=== PATIENT | female | born 1940 | race Caucasian/White ===

== ENCOUNTER 2018-09-29 00:29 | Outpatient (CLI) | payer MEDICARE, SELFPAY ==
--- NOTE | 2018-09-29 09:34 | DI.MAMMO_ITS ---
SYMPTOM/DIAGNOSIS: SCREENING, Z12.39 MAMMOGRAMS: Mammograms were interpreted according to the usual protocol including computer analysis with CAD system, tomosynthesis and C view imaging. Comparison is with the prior examinations. No suspicious masses or microcalcifications are seen. The asymmetric breast tissue in the upper outer quadrant of the right breast appears stable. IMPRESSION: No evidence for malignancy. Yearly mammography is recommended. Category 1. Breast density B. MQSA ASSESSMENT OF FINDINGS: Negative. Category 1. Patient will receive a letter notifying them of these results. BI-RADS category B. There are scattered areas of fibroglandular density.
== END 2018-09-29 00:49 ==
PROVIDERS: PCP Family Medicine; Visit Provider Family Medicine
DX: Z12.31 Encounter for screening mammogram for malignant neoplasm of breast (principal)
CPT/HCPCS: 77063; 77067

== ENCOUNTER 2019-09-22 11:20 | Outpatient (REF) | payer MEDICARE, SELFPAY ==
[2019-09-22 18:50] LABS: HCT 42.2 % (36.0-46.0); HGB 14.1 g/dL (12.0-15.5); Mean Corp. HGB Concentration 33.4 g/dL (32.0-36.0); Mean Corpuscular Hemoglobin 31.4 pg (27.0-33.0); Mean Platelet Volume 10.6 fL (8.0-11.0); Platelet Count 205 x1000/uL (130-400); RBC 4.49 m/cumm (4.00-5.20); RBC Distribution Width 13.6 % (11.7-14.6); White Blood Cell Count 6.44 k/cumm (4.4-10.8)
[2019-09-22 18:52] LABS: Anion Gap 10.6 mmol/L (3-11); BUN 18 mg/dL (7-18); CO2 23.4 mmol/L (21.0-32.0); CREATININE 0.95 mg/dL (0.55-1.02); Calcium 9.3 mg/dL (8.5-10.1); Chloride 107 mmol/L (98-107); Glucose 100 mg/dL (74-106); Potassium 4.4 mmol/L (3.5-5.1); Sodium 141 mmol/L (136-145)
== END 2019-09-22 11:40 ==
LOC: NCHCN 11:20
PROVIDERS: PCP Family Medicine; Visit Provider Family Medicine
DX: N18.3 Chronic kidney disease, stage 3 (moderate) (principal)
CPT/HCPCS: 80048; 85027

== ENCOUNTER 2020-09-30 18:53 | Outpatient (REF) | payer MEDICARE, SELFPAY ==
[2020-09-30 19:44] LABS: Anion Gap 10.2 mmol/L (3-11); BUN 24 mg/dL (7-18); CO2 24.8 mmol/L (21.0-32.0); CREATININE 0.9 mg/dL (0.55-1.02); Calcium 9.5 mg/dL (8.5-10.1); Chloride 107 mmol/L (98-107); Glucose 95 mg/dL (74-106); Potassium 4.2 mmol/L (3.5-5.1); Sodium 142 mmol/L (136-145)
== END 2020-09-30 18:54 | disposition home or self-care (01) ==
LOC: NCHCN 18:53
PROVIDERS: PCP Family Medicine; Visit Provider Family Medicine
DX: N18.30 Chronic kidney disease, stage 3 unspecified (principal)
CPT/HCPCS: 80048

== ENCOUNTER 2020-11-07 19:50 | Outpatient (REF) | payer MEDICARE, SELFPAY ==
[2020-11-07 19:54] LABS: Abs Immature Grans 0.01 10^3/uL (0.0-0.06); Absolute Basophil Count 0.07 10^3/uL (0.0-0.2); Absolute Eosinophil Count 0.24 10^3/uL (0.0-0.7); Absolute Monocyte Count 0.52 10^3/uL (0.1-0.8); Absolute Neutrophil Count 3.46 10^3/uL (1.2-6.7); Basophils % 1.2; Eosinophils % 4.1; HCT 42.3 % (36.0-46.0); HGB 14.2 g/dL (11.2-15.7); Immature Grans % 0.2; Lymphocytes % 25.9; MCH 31.7 pg (27.0-33.0); MCHC 33.6 % (32.0-36.0); MCV 94.4 fL (80-95); MPV 10.4 fL (8.0-11.0); Neutrophils % 59.6; Nucleated RBC 0 %; Platelet Count 179 10^3/uL (130-400); RBC 4.48 10^6/uL (3.93-5.22); RDW-SD 44.7 fL
[2020-11-07 20:04] LABS: ALT 26 U/L (14-59); AST 23 U/L (15-37); Albumin 3.9 g/dL (3.4-5.0); Alkaline Phosphatase 92 U/L (46-116); Anion Gap 9.5 mmol/L (3-11); BUN 20 mg/dL (7-18); Bilirubin, Total 0.5 mg/dL (0.2-1.0); CO2 25.5 mmol/L (21.0-32.0); CREATININE 0.9 mg/dL (0.55-1.02); Chloride 110 mmol/L (98-107); Glucose 86 mg/dL (74-106); Potassium 4.1 mmol/L (3.5-5.1); Sodium 145 mmol/L (136-145); Total Protein 7.1 g/dL (6.4-8.2)
[2020-11-09 15:02] LABS: COVID-19 RT-PCR UVMMC Result Negative (Negative)
== END 2020-11-07 19:51 | disposition home or self-care (01) ==
LOC: NCHCN 19:50
PROVIDERS: PCP Family Medicine; Visit Provider Physician Assistant Medical
DX: R53.1 Weakness (principal); N39.0 Urinary tract infection, site not specified; Z20.822 Contact with and (suspected) exposure to COVID-19
CPT/HCPCS: 80053; U0003; 85025; 87086

== ENCOUNTER 2020-12-12 20:16 | Outpatient (REF) | payer MEDICARE, SELFPAY ==
[2020-12-12 20:58] LABS: Abs Immature Grans 0.01 10^3/uL (0.0-0.06); Absolute Basophil Count 0.03 10^3/uL (0.0-0.2); Absolute Eosinophil Count 0.16 10^3/uL (0.0-0.7); Absolute Lymphocyte Count 1.56 10^3/uL (1.2-3.4); Absolute Monocyte Count 0.71 10^3/uL (0.1-0.8); Absolute Neutrophil Count 2.87 10^3/uL (1.2-6.7); Basophils % 0.6; HCT 37.2 % (36.0-46.0); HGB 12.7 g/dL (11.2-15.7); Immature Grans % 0.2; Lymphocytes % 29.2; MCH 31.8 pg (27.0-33.0); MCHC 34.1 % (32.0-36.0); Monocytes % 13.3; Neutrophils % 53.7; Nucleated RBC 0 %; Platelet Count 196 10^3/uL (130-400); RDW 12.7 % (11.7-14.6); RDW-SD 43.6 fL; WBC 5.34 10^3/uL (4.4-10.8)
[2020-12-12 21:05] LABS: Anion Gap 9.6 mmol/L (3-11); BUN 13 mg/dL (7-18); CO2 26.4 mmol/L (21.0-32.0); CREATININE 0.9 mg/dL (0.55-1.02); Calcium 8.5 mg/dL (8.5-10.1); Chloride 107 mmol/L (98-107); Glucose 125 mg/dL (74-106); Potassium 3.6 mmol/L (3.5-5.1); Sodium 143 mmol/L (136-145)
== END 2020-12-12 20:17 | disposition home or self-care (01) ==
LOC: NCHCN 20:16
PROVIDERS: PCP Family Medicine; Visit Provider Physician Assistant Medical
DX: R19.7 Diarrhea, unspecified (principal)
CPT/HCPCS: 80048; 85025

== ENCOUNTER 2020-12-13 12:11 | Outpatient (REF) | payer MEDICARE, SELFPAY ==
[2020-12-13 15:33] LABS: C Diff PCR Positive (Negative)
[2020-12-15 19:29] LABS: Campylobacter PCR Negative (Negative); Salmonella PCR Negative (Negative); Shiga Toxin PCR Negative (Negative); Shigella/Enteroinvasive Ecoli Negative (Negative)
== END 2020-12-13 12:12 | disposition home or self-care (01) ==
LOC: NCHCN 12:11
PROVIDERS: PCP Family Medicine; Visit Provider Physician Assistant Medical
DX: R19.7 Diarrhea, unspecified (principal)
CPT/HCPCS: 87329; 87493; 87505; 87177

== ENCOUNTER 2021-06-23 16:27 | Outpatient (REF) | payer MEDICARE, SELFPAY ==
[2021-06-23 16:50] LABS: C Diff PCR Positive (Negative)
== END 2021-06-23 16:28 | disposition home or self-care (01) ==
LOC: NCHCN 16:27
PROVIDERS: PCP Family Medicine; Visit Provider Family Medicine
DX: R19.7 Diarrhea, unspecified (principal)
CPT/HCPCS: 87493

== ENCOUNTER 2021-06-24 16:15 | Outpatient (REF) | payer MEDICARE, SELFPAY ==
[2021-06-24 16:27] LABS: Abs Immature Grans 0.01 10^3/uL (0.0-0.06); Absolute Basophil Count 0.08 10^3/uL (0.0-0.2); Absolute Lymphocyte Count 1.74 10^3/uL (1.2-3.4); Absolute Monocyte Count 0.61 10^3/uL (0.1-0.8); Absolute Neutrophil Count 3.56 10^3/uL (1.2-6.7); Basophils % 1.2; Eosinophils % 7.7; HCT 43.5 % (36.0-46.0); Immature Grans % 0.2; Lymphocytes % 26.8; MCHC 32.2 % (32.0-36.0); MCV 96.5 fL (80-95); MPV 10.7 fL (8.0-11.0); Monocytes % 9.4; Neutrophils % 54.7; Nucleated RBC 0 %; Platelet Count 205 10^3/uL (130-400); RBC 4.51 10^6/uL (3.93-5.22); RDW 13.1 % (11.7-14.6); RDW-SD 46.7 fL
[2021-06-24 16:42] LABS: Anion Gap 10.1 mmol/L (3-11); BUN 18 mg/dL (7-18); CO2 25.9 mmol/L (21.0-32.0); Calcium 9.2 mg/dL (8.5-10.1); Chloride 109 mmol/L (98-107); Estimated GFR 53.21 (mL/min/1.73m2); Glucose 85 mg/dL (74-106); Potassium 4.1 mmol/L (3.5-5.1); Sodium 145 mmol/L (136-145)
== END 2021-06-24 16:16 | disposition home or self-care (01) ==
LOC: NCHCN 16:15
PROVIDERS: PCP Family Medicine; Visit Provider Family Medicine
DX: A04.71 Enterocolitis due to Clostridium difficile, recurrent (principal); N18.30 Chronic kidney disease, stage 3 unspecified
CPT/HCPCS: 80048; 85025

== ENCOUNTER 2021-07-15 14:12 | Outpatient (REF) | payer MEDICARE, SELFPAY ==
[2021-07-15 14:51] LABS: C Diff PCR Negative (Negative)
== END 2021-07-15 14:13 | disposition home or self-care (01) ==
LOC: NCHCN 14:12
PROVIDERS: PCP Family Medicine; Visit Provider Family Medicine
DX: R19.7 Diarrhea, unspecified (principal)
CPT/HCPCS: 87493

== ENCOUNTER 2021-08-27 15:51 | Outpatient (REF) | payer MEDICARE, SELFPAY ==
--- NOTE | 2021-08-27 15:00 | SKI_PTH ---
PATIENT: Maria Figueroa LOC: [facility] U#:[id number] AGE/SX: 81/F ROOM: RE08/27/[address]: Iron Ruiz : 1940 BED: DIS: 08/27/2021 SPEC #: [id number] RECD: 08/27/21 18:13 STATUS: JEISON REQ #: [id number] GAMAL: 08/27/21 15:[address]: Iron Ruiz DEPT: Surgical Specimen RECD BY: Sheree Gómez ENTERED: 08/27/21 18:14 SP TYPE: COLTEN QUINONES DR: Bonnie Roach Tissues: 1 - SKIN BIOPSY(SHAVE/PUNCH) Procedures: SKIN LEVEL 4 Comments: [id number]
== END 2021-08-27 15:52 | disposition home or self-care (01) ==
LOC: LBN 15:51
PROVIDERS: PCP Family Medicine; Visit Provider Family Medicine
DX: L30.8 Other specified dermatitis (principal)
CPT/HCPCS: 88305

== ENCOUNTER 2021-10-27 20:11 | Outpatient (REF) | payer MEDICARE, SELFPAY ==
[2021-10-27 12:01] LABS: C Diff PCR Negative (Negative)
== END 2021-10-27 20:12 | disposition home or self-care (01) ==
LOC: NCHCN 20:11
PROVIDERS: PCP Family Medicine; Visit Provider Family Medicine
DX: R19.7 Diarrhea, unspecified (principal)
CPT/HCPCS: 87493

== ENCOUNTER 2022-10-28 15:53 | Outpatient (REF) | payer MEDICARE, SELFPAY ==
[2022-10-28 19:09] LABS: Anion Gap 10.1 mmol/L (3-11); BUN 21 mg/dL (7-18); CO2 26.9 mmol/L (21.0-32.0); CREATININE 0.9 mg/dL (0.55-1.02); Calcium 9.6 mg/dL (8.5-10.1); Chloride 105 mmol/L (98-107); Estimated GFR 63.43 (mL/min/1.73m2); Glucose 91 mg/dL (74-106); Potassium 4.3 mmol/L (3.5-5.1); Sodium 142 mmol/L (136-145); TSH (W/Ref FT4) 3.18 uIU/mL (0.36-3.74)
[2022-10-28 19:22] LABS: Glucose Negative (Negative); Nitrite Negative (Negative); Urobilinogen 0.2 mg/dL (Up to 0.2)
[2022-10-28 19:26] LABS: Bacteria Negative HPF (Negative); C & S Indicated? No; Casts Negative LPF (Negative); Crystals Negative HPF (Negative); Epithelial Cells Few HPF (Negative)
[2022-10-28 19:42] LABS: Clarity Clear (Clear)
[2022-10-28 19:43] LABS: Leukocyte Esterase Trace (Negative); pH 6.5 (5-8)
[2022-10-28 19:44] LABS: Ketones Negative (Negative)
[2022-10-28 19:45] LABS: Bilirubin Negative (Negative); Blood Negative (Negative)
[2022-10-28 19:47] LABS: Mucus Negative (Negative); RBC 0-2 HPF (0-2)
[2022-10-28 19:50] LABS: Vitamin B12 > 2000 pg/mL (193-986)
== END 2022-10-28 15:54 | disposition home or self-care (01) ==
LOC: NCHCN 15:53
PROVIDERS: PCP Family Medicine; Visit Provider Family Medicine
DX: N18.30 Chronic kidney disease, stage 3 unspecified (principal); E53.8 Deficiency of other specified B group vitamins; R03.0 Elevated blood-pressure reading, without diagnosis of hypertension; Z79.899 Other long term (current) drug therapy
CPT/HCPCS: 80048; 81003; 81015; 82607; 84443

== ENCOUNTER 2022-11-04 16:26 | Outpatient (REF) | payer MEDICARE, SELFPAY ==
[2022-11-04 13:40] LABS: Bilirubin Negative (Negative); Blood Negative (Negative); Clarity Sl Cloudy (Clear); Glucose Negative (Negative); Ketones Negative (Negative); Leukocyte Esterase Moderate (Negative); Nitrite Negative (Negative); Urobilinogen 0.2 mg/dL (Up to 0.2)
[2022-11-04 14:25] LABS: Bacteria Few HPF (Negative); C & S Indicated? No/Sq. Contamination; Casts Negative LPF (Negative); Crystals Negative HPF (Negative); Epithelial Cells Moderate HPF (Negative); Mucus Negative (Negative); RBC Negative HPF (0-2)
== END 2022-11-04 16:27 | disposition home or self-care (01) ==
LOC: NCHCN 16:26
PROVIDERS: PCP Family Medicine; Visit Provider Family Medicine
DX: R82.998 Other abnormal findings in urine (principal); R03.0 Elevated blood-pressure reading, without diagnosis of hypertension
CPT/HCPCS: 81003; 81015

== ENCOUNTER 2023-08-25 15:42 | Outpatient (REF) | payer MEDICARE, SELFPAY ==
[2023-08-25 17:43] LABS: COVID-19 PCR Negative (Negative); Influenza A PCR Negative (Negative); Influenza B PCR Negative (Negative); RSV PCR Negative (Negative); Source NASOPHARYNX
== END 2023-08-25 15:43 | disposition home or self-care (01) ==
LOC: LBN 15:42
PROVIDERS: PCP Family Medicine; Visit Provider Physician Assistant Medical
DX: Z20.822 Contact with and (suspected) exposure to COVID-19 (principal)
CPT/HCPCS: 87637

== ENCOUNTER 2023-09-17 09:58 | Emergency (ER) | payer MEDICARE, SELFPAY ==
[2023-09-17] VITALS (29 sets, daily range): BP systolic 139–161; BP diastolic 63–101; PULSE 60–80; RESP 11–23; TEMP 36.4; O2SAT 79–98
--- NOTE | 2023-09-17 10:00 | RT.EKG_ITS ---
APPROVED REPORT Exam: Resting ECG Reason for Exam: Weak Patient Location: E HR:72 bpm ECG Measurements Heart Rate 72 AXIS DC 150 P 36 QRSd 93 QRS 29 QT 398 T 60 QTc 437 Conclusion Sinus rhythm...normal P axis, V-rate 60- 99 Narrow complex normal sinus rhythm at a rate of 72. Normal axis. Intervals within normal limits. S T segment flattening V2 and V3. No T wave inversions. No acute injury pattern. No prior for compar madhav.
--- NOTE | 2023-09-17 10:01 | ED.GENADUL_ITS ---
Discharge Plan Disposition Patient Disposition: Home Discharge Details Clinical Impression: Chest pain, unspecified Primary Care Provider: Iron Ruiz ED Provider: Iron Lopez Home Meds and New Rx's Prescriptions: Continued cholecalciferol (vitamin D3) 1,000 UNIT capsule 1,000 unit PO BID acetaminophen [Tylenol] 325 MG tablet 325 mg PO Q3H PRN cyanocobalamin (vitamin B-12) [Vitamin B-12] 1,000 MCG tablet 1,000 mcg PO DAILY pantoprazole 40 MG tablet,delayed release (DR/EC) 1 tab PO PRN PRN Hold Instructions: Prescription Finished ondansetron 4 MG tablet,disintegrating 4 mg PO Q8H PRN PRNQty: 30 0RF Hold Instructions: Prescription Finished Discharge Instructions Instructions: Chest Pain (ED) Additional Instructions: You are seen in the emergency department for your chest pain. Your blood work showed no sign of any heart attack. Your chest x-ray shows that you have a hiatal hernia. As we discussed if you cannot eat or drink develop nausea or vomiting or if you have any other concerns please return to the emergency department. Please also return if you pass out or if you are chest pain worsens. Discharge Data Discharge Date/Time-TO BE ENTERED AT DEPARTURE: 09/17/23 14:14 HPI General Date/Time Provider Initiated Documentation: 09/17/23 10:01 . HPI Narrative: MDM This is an overall very well-appearing afebrile and not tachycardic 83-year-old female with chest pain concerning for the possibility of ACS for which she will obtain 2 troponins. No pain out of proportion to suggest necrotizing soft tissue infection. No cough nor shortness of breath so my suspicion for pneumonia is low however will obtain a chest x-ray. No vascular risk factors and no tearing quality to suggest aortic dissection. No history of dialysis and no tachycardia nor hypotension so my suspicion is low for tamponade. No trauma to the chest and equal breath sounds so doubt pneumothorax. No vomiting so doubt esophageal rupture. No rash to chest to suggest zoster. I considered PE and patient is low risk so we will obtain a D-dimer. I also considered CVA however the patient is neurologically intact with no objective weakness I do not feel that the patient requires an MRI nor would she be a tPA candidate. No tonic-clonic activity to suggest seizure so I do not feel the patient requires an EEG. No dysuria no frequency so doubt UTI. Soft nontender abdomen and no recent abdominal complaints so my suspicion for intra-abdominal infection is exceedingly low. Will reassess following 2 sets of troponins. Patient does have a history of hiatal hernia however given her upper chest pain my suspicion for hiatal hernia causing symptoms is low. No shortness of breath to suggest acute heart failure. Similarly no significant lower extremity edema. 10:42 AM CBC lacks anemia thrombocytopenia and leukocytosis. 11:21 AM Negative D-dimer based on years criteria. Negative initial troponin. Basic metabolic panel showing no AMPARO. Mild hyperglycemia but no anion gap. Normal bicarbonate??not consistent with DKA. 6:40PM Late charting due to patient care. I met with patient and her son. She felt improved. She tolerated PO. Repeat trop negative. I advised that I did not have a clear explanation for symptoms but I that I felt that pt was appropriate for an empiric trial of expectant outpt management. I advised ED return for any syncope, chest pain that radiated to arm, and confusion or any other concerns. Otherwise I advised PCP fu next week. HEART SCORE Chest pain Diagnostic Protocol: [-History/Physical/Gestalt: Slightly Suspicious (0)] [- EKG: Nonspecific repolarization (+1)] [- AGE: 65 and older (+2)] [-RISK FACTORS: No known risk factors (0)] [-TROPONIN: <= normal limit (0)] - TOTAL SCORE: 3 - Risk Factors: DM, current or recent smoker, HTN, HLD, family hx of CAD, obesity - INTERPRETATION: With a total score of 3 or less, risk of major cardiac event within six weeks 1.7%, likely lower with two negative troponins. [I explained to the patient that the risk of subsequent major cardiac event within 1 month is not 0, however risk predicted to be less than 2%. Patient verbalized understanding, accepts this risk and shared and the decision for discharge with PCP follow-up for further evaluation and management. They understand to return to the ED immediately with any worsening symptoms, new symptoms or other concerns.] Chronic conditions affecting the care of the patient: Hiatal hernia History obtained from an outside historian: Patient's son External record [place] [facility] [place] Diagnostic interpretations performed by me: Per my independent interpretation chest x-ray shows: Large left hiatal hernia. No acute cardiopulmonary process. Per my independent interpretation EKG shows: Narrow complex normal sinus rhythm at a rate of 72. Normal axis. Intervals within normal limits. ST segment flattening V2 and V3. No T wave inversions. No acute injury pattern. No prior for comparison. ]Medications: none Social determinants of health affecting disposition: N/A Management discussed with: N/A Treatment/interventions considered: N/A Response to therapies provided: no recurrent symtpoms in the ED HPI This is an 83-year-old female with a history of hiatal hernia arriving to the emergency department via private vehicle with her son in the setting of left- sided upper chest pain that began approximately 30 minutes ago. Patient was riding with her son to a medical appointment. She noticed discomfort in her chest that was associated with discomfort in her left upper arm. She felt weak. Symptoms began at approximately 9:45 AM. She had no prior history of similar symptoms. She has had no recent cough nor fevers. No nausea vomiting nor headaches. Patient denies history of hypertension hyperlipidemia and diabetes. She denies routine tobacco, ethanol, and illicits. She denies any abdominal p ain. She felt as if she was going to pass out. Exam General: Well-appearing in no acute distress speaking in complete sentences. Head: Normocephalic, atraumatic. Eye:[Pupils equal, round reactive to light.] Extraocular eye movements intact. No conjunctival injection. No scleral icterus. Ear, nose, mouth, throat: Grossly normal inspection. Normal voice, handling secretions normally. Neck: Trachea midline. Cardiovascular: Well-perfused distal extremities. Regular rate and rhythm Respiratory: Nonlabored respiration. Clear lungs bilaterally Gastrointestinal: Nondistended abdomen. Soft nontender Musculoskeletal: No significant lower extremity edema. Moving all 4 extremities spontaneously. Skin: Normal for age and race, grossly normal temperature and turgor. No acute rash. Neurologic: Alert and appropriate, no apparent acute deficits. GCS 15. Cranial nerves II through XII intact grossly. No pronator drift. 5 out of 5 bilateral upper and lower extremity strength. No dysmetria. No dysdiadochokinesia. No pronator drift. Psychiatric: Mood and manner are appropriate. Grooming and personal hygiene are appropriate. Related Data Home Medications Medication Instructions Recorded Confirmed acetaminophen 325 mg tablet 325 mg PO Q3H PRN 12/20/13 09/17/23 (Tylenol) cholecalciferol (vitamin D3) 25 1,000 unit PO BID 12/20/13 09/17/23 mcg (1,000 unit) capsule cyanocobalamin (vitamin B-12) 1,000 mcg PO DAILY 07/17/14 09/17/23 1,000 mcg tablet (Vitamin B-12) pantoprazole 40 mg tablet,delayed 1 tab PO PRN PRN 08/06/14 09/17/23 release ondansetron 4 mg disintegrating 4 mg PO Q8H PRN PRN ##30 04/10/17 09/17/23 tablet Previous Rx's Medication Instructions Recorded ondansetron 4 mg disintegrating 4 mg PO Q8H PRN PRN ##30 04/10/17 tablet Allergies Allergy/AdvReac Type Severity Reaction Status Date / Time oxycodone HCl [From Percocet] AdvReac Intermediate Nausea Unverified 04/10/17 09:41 Medical Decision Making Quality:SDOH Health Related Social Needs: No Data to Display PFSH All Active Problems (Updated 09/17/23 @ 14:09 by Iron Lopez MD) Chest pain, unspecified (Acute) Former smoker (Chronic) Bursitis of right hip (Chronic) Anemia (Chronic) B12 deficiency (Chronic) Osteopenia (Chronic) Hiatal hernia (Chronic) Urinary incontinence (Acute 08/09/14) Cystocele with uterine prolapse (Acute 08/09/14) Medical History (Updated 09/17/23 @ 14:09 by Iron Lopez MD) Hiatal hernia Retinal detachment Osteopenia Anemia, B12 deficiency Bursitis of hip, right Surgical History (Updated 05/11/18 @ 14:33 by [employer] [place]) Ligation of fallopian tube Replacement of total knee joint EGD - IV Sedation Colonoscopy - IV Sedation Appendectomy Social History Smoking/Tobacco Use Status: Former Tobacco Use Smoking risk assessment performed?: Yes Drug use: Never Do you feel safe at home: Yes Do you feel safe in your relationship?: Yes
--- NOTE | 2023-09-17 10:15 | DI.RAD_ITS ---
Exam(s) XR PORTABLE CHEST AP EXAM: XR PORTABLE CHEST AP CLINICAL HISTORY: Chest pain TECHNIQUE: 2D digital imaging was performed of the chest. One image was obtained. An AP view was ob tained. COMPARISON: CT ABD PELVIS WITH CONTRAST from 04/10/2017 FINDINGS: MEDIASTINUM: Normal. HEART: Normal. PULMONARY VASCULATURE: Normal. LUNGS: Clear. PLEURAL SPACE: No pleural effusion or pneumothorax. BONE:Within normal limits for the patient's age. OTHER FINDINGS:There is again seen a large hiatal hernia IMPRESSION: 1. No acute pulmonary process. 2. A large component of the stomach is again seen above the hemidiaphragm.. DATA REPOSITORY: RADIATION DOSE DELIVERED:
[2023-09-17 10:40] LABS: Abs Immature Grans 0.02 10^3/uL (0.0-0.06); Absolute Basophil Count 0.05 10^3/uL (0.0-0.2); Absolute Eosinophil Count 0.32 10^3/uL (0.0-0.7); Absolute Lymphocyte Count 1.23 10^3/uL (1.2-3.4); Absolute Monocyte Count 0.56 10^3/uL (0.1-0.8); Absolute Neutrophil Count 3.26 10^3/uL (1.2-6.7); Basophils % 0.9; Eosinophils % 5.9; HCT 40.1 % (36.0-46.0); HGB 13.8 g/dL (11.2-15.7); Immature Grans % 0.4; Lymphocytes % 22.6; MCH 31.6 pg (27.0-33.0); MCHC 34.4 % (32.0-36.0); MCV 92 fL (80-95); MPV 9.2 fL (8.0-11.0); Monocytes % 10.3; Neutrophils % 59.9; Platelet Count 180 10^3/uL (130-400); RBC 4.37 10^6/uL (3.93-5.22); RDW-SD 43.8 fL; WBC 5.44 10^3/uL (4.4-10.8)
[2023-09-17 11:01] LABS: Anion Gap 9.9 mmol/L (3-11); BUN 25 mg/dL (7-18); CO2 27.1 mmol/L (21.0-32.0); Calcium 9.4 mg/dL (8.5-10.1); Chloride 106 mmol/L (98-107); Estimated GFR 55.55 (mL/min/1.73m2); Glucose 148 mg/dL (74-106); Potassium 3.8 mmol/L (3.5-5.1); Sodium 143 mmol/L (136-145); Troponin I < 50 ng/L (< or =60)
[2023-09-17 11:12] LABS: D-Dimer 854 ng/mlFEU (<500)
[2023-09-17 13:33] LABS: Troponin I < 50 ng/L (< or =60)
== END 2023-09-17 14:14 | disposition home or self-care (01) ==
PROVIDERS: Emergency Provider Emergency Medicine; PCP Family Medicine
DX: R07.9 Chest pain, unspecified (principal); R53.1 Weakness; K44.9 Diaphragmatic hernia without obstruction or gangrene; Z87.891 Personal history of nicotine dependence
CPT/HCPCS: 36415; 80048; 87637; 93005; 99285; 71045; 84484; 85025; 85379; 93010; 99284

== ENCOUNTER 2023-11-02 09:56 | Outpatient (REF) | payer MEDICARE, SELFPAY ==
[2023-11-02 15:44] LABS: HCT 40.2 % (36.0-46.0); HGB 13.5 g/dL (11.2-15.7); MCH 31.8 pg (27.0-33.0); MCHC 33.6 % (32.0-36.0); MCV 95 fL (80-95); MPV 10.3 fL (8.0-11.0); Platelet Count 173 10^3/uL (130-400); RBC 4.25 10^6/uL (3.93-5.22); WBC 5.78 10^3/uL (4.4-10.8)
[2023-11-02 15:52] LABS: Anion Gap 10.2 mmol/L (3-11); BUN 20 mg/dL (7-18); CO2 24.8 mmol/L (21.0-32.0); CREATININE 0.8 mg/dL (0.55-1.02); Calcium 8.9 mg/dL (8.5-10.1); Chloride 108 mmol/L (98-107); Estimated GFR 72.61 (mL/min/1.73m2); Glucose 83 mg/dL (74-106); Potassium 4.1 mmol/L (3.5-5.1); Sodium 143 mmol/L (136-145)
== END 2023-11-02 09:57 | disposition home or self-care (01) ==
LOC: NCHCN 09:56
PROVIDERS: PCP Family Medicine; Referring Provider Family Medicine; Visit Provider Family Medicine
DX: N18.30 Chronic kidney disease, stage 3 unspecified (principal); R53.83 Other fatigue
CPT/HCPCS: 80048; 82306; 85027

== ENCOUNTER 2024-01-18 14:11 | Outpatient (CLI) | payer MEDICARE, SELFPAY ==
--- NOTE | 2024-01-18 07:30 | DI.RAD_ITS ---
Exam(s) XR HIP RT COMPLETE AP PELVIS EXAM: XR HIP RT COMPLETE AP PELVIS CLINICAL HISTORY: RIGHT HIP PAIN. TECHNIQUE: 2D digital imaging was performed. Two views COMPARISON: No exams were available for comparison FINDINGS: BONES: No acute fracture is present. No bony destructive lesion is seen. JOINTS: No dislocation present. Hip joint spaces are maintained no significant periarticular spurri ng. Mild degenerative changes present in the SI joint views and this. SOFT TISSUE: Normal. IMPRESSION: No acute abnormality. DATA REPOSITORY: RADIATION DOSE DELIVERED:
== END 2024-01-18 14:12 | disposition home or self-care (01) ==
LOC: DIORS 14:11
PROVIDERS: PCP Nurse Practitioner Family; Visit Provider Student in an Organized Health Care Education/Training Program
DX: M70.61 Trochanteric bursitis, right hip; M76.31 Iliotibial band syndrome, right leg
CPT/HCPCS: 20610; 99213; J1010; 73502

== ENCOUNTER 2024-09-27 17:00 | Outpatient (REF) | payer MEDICARE, SELFPAY ==
[2024-09-27 15:54] LABS: HCT 42.3 % (36.0-46.0); HGB 14.1 g/dL (11.2-15.7); MCH 31.4 pg (27.0-33.0); MCHC 33.3 % (32.0-36.0); MCV 94 fL (80-95); MPV 9.9 fL (8.0-11.0); Platelet Count 179 10^3/uL (130-400); RBC 4.49 10^6/uL (3.93-5.22); RDW 13.3 % (11.7-14.6); RDW-SD 46.4 fL; WBC 5.08 10^3/uL (4.4-10.8)
[2024-09-27 17:04] LABS: ALT 18 U/L (14-59); AST 18 U/L (15-37); Albumin 3.8 g/dL (3.4-5.0); Alkaline Phosphatase 92 U/L (46-116); Anion Gap 8.1 mmol/L (3-11); BUN 19 mg/dL (7-18); Bilirubin, Total 0.59 mg/dL (0.2-1.0); CO2 27.9 mmol/L (21.0-32.0); CREATININE 0.9 mg/dL (0.55-1.02); Calcium 9.3 mg/dL (8.5-10.1); Chloride 109 mmol/L (98-107); Estimated GFR 62.65 (mL/min/1.73m2); Ferritin 194 ng/mL (8-252); Glucose 88 mg/dL (74-106); Potassium 4.2 mmol/L (3.5-5.1); Sodium 145 mmol/L (136-145); Vitamin B12 1722 pg/mL (193-986)
[2024-09-27 17:33] LABS: Iron 67 ug/dL (50-170); Total Iron Binding Capacity 244 ug/dL (250-450); Transferrin Sat 27 % (15-50)
== END 2024-09-27 17:01 | disposition home or self-care (01) ==
LOC: NCHCN 17:00
PROVIDERS: PCP Nurse Practitioner Family; Visit Provider Nurse Practitioner Family
DX: D64.9 Anemia, unspecified (principal)
CPT/HCPCS: 80053; 85027; 82607; 82728; 83540; 83550

== ENCOUNTER 2025-02-14 02:00 | Outpatient (CLI) | payer MEDICARE, SELFPAY ==
--- NOTE | 2025-02-14 | DI.US_ITS ---
Exam(s) US ABDOMEN LIMITED EXAM: US ABDOMEN LIMITED CLINICAL HISTORY: R UPPER QUADRANT PAIN, EVALUATE GALLBLADDER, PAIN X2 DAYS R10.11 TECHNIQUE: Ultrasound abdomen performed using standard protocol. COMPARISON: US ABDOMEN ULTRASOUND (P) from 10/11/2017 FINDINGS: PANCREAS: Normal where visualized. LIVER: Normal. Hepatopetal flow in the Portal Vein. The liver measures in 17.4 cm length. No evidence of a hepatic mass. GALLBLADDER:There are gallstones. The largest measures 1.1 cm. The gallstones are mobile. No evidence of wall thickening. No pericholecystic fluid identified. BILIARY SYSTEM: Common bile duct measures < 7 mm. No intrahepatic biliary ductal dilation. SUAZO'S SIGN: Negative. RIGHT KIDNEY: Kidney is normal in size. No evidence of renal calculi. No evidence of hydronephrosis. No renal mass or cyst identified. ASCITES: None seen. IMPRESSION: Cholelithiasis. No biliary ductal dilatation. DATA REPOSITORY:
== END 2025-02-14 02:20 ==
PROVIDERS: PCP Nurse Practitioner Family; Visit Provider Nurse Practitioner Family
DX: K80.80 Other cholelithiasis without obstruction (principal)
CPT/HCPCS: 76705

== ENCOUNTER 2025-02-20 04:42 | Outpatient (CLI) | payer MEDICARE, SELFPAY ==
[2025-02-20 13:07] LABS: Abs Immature Grans 0.01 10^3/uL (0.0-0.06); HCT 40.9 % (36.0-46.0); HGB 13.9 g/dL (11.2-15.7); Immature Grans % 0.2 %; MCH 31.2 pg (27.0-33.0); MCHC 34.0 % (32.0-36.0); MCV 92 fL (80-95); MPV 9.6 fL (8.0-11.0); Platelet Count 160 10^3/uL (130-400); RBC 4.45 10^6/uL (3.93-5.22); RDW 12.8 % (11.7-14.6); RDW-SD 43.0 fL; WBC 6.49 10^3/uL (4.4-10.8)
[2025-02-20 13:22] LABS: Glucose Negative (Negative)
[2025-02-20 13:36] LABS: C & S Indicated? No; RBC Negative HPF (0-2); WBC 0-2 HPF (0-5)
[2025-02-20 13:58] LABS: ALT 16 U/L (14-59); AST 18 U/L (15-37); Albumin 3.8 g/dL (3.4-5.0); Alkaline Phosphatase 89 U/L (46-116); Anion Gap 8.6 mmol/L (3-11); BUN 14 mg/dL (7-18); Bilirubin, Total 0.6 mg/dL (0.2-1.0); CO2 26.4 mmol/L (21.0-32.0); Calcium 9.5 mg/dL (8.5-10.1); Chloride 105 mmol/L (98-107); Estimated GFR 72.16 (mL/min/1.73m2); Glucose 90 mg/dL (74-106); Lipase 30 U/L (<78); Potassium 4.2 mmol/L (3.5-5.1); Sodium 140 mmol/L (136-145); Total Protein 7.4 g/dL (6.4-8.2)
== END 2025-02-20 04:43 | disposition home or self-care (01) ==
LOC: LBO 04:42
PROVIDERS: PCP Nurse Practitioner Family; Visit Provider Nurse Practitioner Family
DX: R10.11 Right upper quadrant pain (principal)
CPT/HCPCS: 36415; 80053; 83690; 81003; 81015; 85025

== ENCOUNTER → 2025-04-10 10:15 | Outpatient (BNVA) | payer MEDICARE, SELFPAY | PROVIDERS: PCP Nurse Practitioner Family; Referring Provider Nurse Practitioner Family; Visit Provider Student in an Organized Health Care Education/Training Program | DX: K44.9 Diaphragmatic hernia without obstruction or gangrene (principal); K80.20 Calculus of gallbladder without cholecystitis without obstruction; R10.11 Right upper quadrant pain | CPT/HCPCS: 99213 ==